=== PATIENT | female | born 1990 | race Caucasian/White ===

== ENCOUNTER → 2018-06-08 | Outpatient (CLI) | payer OTHER ==
[~2018-06-08] MED LIST: IBU800 M1 PO; PERCOCET 325 MG1 TA2 PO; PRENATAL; ZYRTEC ALLERGY10 MG PO
--- NOTE | 2018-06-11 08:44 | NUR ---
See scaned notes from written report during [employer] down time.
== END ==
LOC: LAC 12:45
DX: Z39.1 Encounter for care and examination of lactating mother (principal); Z71.89 Other specified counseling